=== PATIENT | male | born 2000 | race Caucasian/White ===

== ENCOUNTER 2021-08-01 04:41 | Emergency (ER) | payer OTHER ==
[~2021-08-01] VITALS: Ht 190.5 cm; Wt 108.9 kg
[~2021-08-01 04:41] MED LIST: IBUPROFEN 600600 M1 PO; NOHOMEMEDICATIONS
[2021-08-01 05:31] LABS: ABSOLUTE NEUTROPHILS 5.3 thou/uL (1.4-8.2); BASOPHILS 1.3 % (0.0-2.0); EOSINOPHILS 1.3 % (0.0-3.0); HEMATOCRIT 45.1 % (42.0-52.0); HEMOGLOBIN 15.8 gm/dL (14.0-18.0); LYMPHOCYTES 31.2 % (24.0-44.0); MCH 30.3 pg (26.0-34.0); MCV 86.6 fL (80.0-100.0); MONOCYTES 9.6 % (1.0-8.0); PLATELET COUNT 289 thou/uL (150-400); POLYS 56.6 % (36.0-66.0); RDW 12.6 % (10.5-14.5); WBC 9.4 thou/uL (4.0-11.0)
[2021-08-01 05:38] LABS: CALCIUM 9.8 mg/dL (8.5-10.1); CREATININE 1.1 mg/dL (0.7-1.3); POTASSIUM 3.7 mmol/L (3.5-5.1)
[2021-08-01 05:49] LABS: ALBUMIN 4.5 g/dL (3.4-5.0); TOTAL BILIRUBIN 0.5 mg/dL (0.2-1.0); TOTAL PROTEIN 8.2 g/dL (6.4-8.2)
[2021-08-01] MEDS ORDERED: NAPROSYN500 MG PO (06:30)
[2021-08-01] MEDS ORDERED: AZITHROMYCIN 2250 MG PO (06:30)
[2021-08-01 06:34] VITALS: BP 138/73
--- NOTE | 2021-08-01 07:51 | EKG ---
[address] [address] ELECTROCARDIOGRAM REPORT Name: MARSHAL BRAVO Room #: [facility]#: [id number] Admission: 08/01/21 Attend Phys: Discharge: 08/01/21 Date of : [birth year] Report #: [id number] [facility] ED Test Date: 2021-08-01 Test Time: 04:56:11 Pat Name: MARSHAL BRAVO Department: Room: Gender: Economics Analyst: [place] [id number] : 2000 Requested By: Renard Lisa Order Number: [id number] MD: Umesh Cartagena Measurements Intervals [place] Rate: 112 P: 60 IA: 167 QRS: 27 QRSD: 92 T: 50 QT: 321 QTc: 438 Interpretive Statements Sinus tachycardia Nonspecific ST segment abnormality No previous ECG available for comparison Electronically Signed On 08-01-2021 7:51:06 [employer] by Umesh Cartagena [email or web address] <ELECTRONICALLY SIGNED> By: Umesh Cartagena MD, [facility] 08/01/21 [id number] Umesh Cartagena MD, FACC /EPI
== END 2021-08-01 06:42 | disposition home or self-care (01) ==
LOC: ER 04:41
PROVIDERS: Emergency Medicine
DX: R10.31 Right lower quadrant pain (principal); Z20.822 Contact with and (suspected) exposure to COVID-19